=== PATIENT | male | born 1970 | race American Indian/Alaskan Native ===

== ENCOUNTER 2017-11-27 20:26 | Emergency (ER) | payer MEDICAID ==
[2017-11-27 20:31] VITALS: BMI 23.5
[2017-11-27 20:34] VITALS: BP 120/90; PULSE 71; RESP 16; TEMP 98.6
[2017-11-27] MEDS ORDERED: Naloxone HCl 2mg/2ml syr NAS PRN (20:38)
--- NOTE | 2017-11-27 20:38 | ED PDOC ---
Arrival/HPI - General Chief Complaint: Substance Abuse Time Seen by Provider: 11/27/17 20:32 Historian: Patient, EMS - History of Present Illness Narrative History of Present Illness (Text): 11/27/17 20:35 47 year old male presents to the Emergency department due to Heroin overdose. Patient was given 2mg of Narcan by the paramedics in the field. While in the Emergency department, patient presents with hypnic breathing. Patient denies any SI/HI, co-ingestion, fever, chills, chest pain, nausea, vomiting, diarrhea, urinary symptoms, back pain, neck pain, headache, dizziness, trauma/injury, suicidal/homicidal ideation or any other complaints. Time/Duration: Prior to Arrival Symptom Onset: Sudden Symptom Course: Unchanged Context: Home Past Medical History - Provider Review Nursing Documentation Reviewed: Yes - Psychiatric Hx Substance Use: Yes Family/Social History - Physician Review Nursing Documentation Reviewed: Yes Family/Social History: Unknown Family HX Smoking Status: Heavy Smoker > 10 Cigarettes Daily Hx Alcohol Use: Yes Frequency of alcohol use: Socially Hx Substance Use: Yes Substance used: Heroin Allergies/Home Meds Allergies/Adverse Reactions: Allergies No Known Allergies Allergy (Verified 11/27/17 20:30) Home Medications: Home Meds Medication Instructions Recorded Confirmed Unobtainable 11/27/17 11/27/17 Review of Systems - Physician Review All systems were reviewed & negative as marked: Yes - Review of Systems Constitutional: absent: Fevers, Night Sweats Cardiovascular: absent: Chest Pain Gastrointestinal: absent: Diarrhea, Nausea, Vomiting Genitourinary Male: absent: Dysuria Musculoskeletal: absent: Back Pain, Neck Pain Neurological: absent: Headache, Dizziness Physical Exam Vital Signs Reviewed: Yes Vital Signs Temp Pulse Resp BP Pulse Ox 11/27/17 20:32 98.6 F 71 16 120/90 100 Temperature: Afebrile Blood Pressure: Normal Pulse: Regular Respiratory Rate: Normal Appearance: Positive for: Non-Toxic, Comfortable, Other (thin habitus) Pain Distress: None Mental Status: Positive for: Alert and Oriented X 3 Finger Stick Blood Glucose: 102 - Systems Exam Head: Present: Atraumatic, Normocephalic Pupils: Present: PERRL Extroacular Muscles: Present: EOMI Conjunctiva: Present: Normal Mouth: Present: Moist Mucous Membranes Neck: Present: Normal Range of Motion Respiratory/Chest: Present: Clear to Auscultation, Good Air Exchange. No: Respiratory Distress, Accessory Muscle Use Cardiovascular: Present: Regular Rate and Rhythm, Normal S1, S2. No: Murmurs Abdomen: No: Tenderness, Distention, Peritoneal Signs Back: Present: Normal Inspection Upper Extremity: Present: Normal Inspection, Other (No signs of injection drug use). No: Cyanosis, Edema Lower Extremity: Present: Normal Inspection. No: Edema Neurological: Present: GCS=15, CN II-XII Intact, Speech Normal Skin: Present: Warm, Dry, Normal Color. No: Rashes Psychiatric: Present: Alert, Oriented x 3, Normal Insight, Normal Concentration Medical Decision Making ED Course and Treatment: 11/27/17 20:41 Impression: 47 year old male presents to the Emergency department due to heroin overdose. Differential Diagnosis included but are not limited to: drug overdose Plan: -- Narcan -- Will observe on monitor for 1.5 hours -- Reassess and disposition Progress Notes: 11/27/17 20:46 Patient is alert and oriented x4. patient is adamant about leaving and will be discharged against medical advice. 11/27/17 20:47 Leaving Against Medical Advice (AMA): The patient is choosing to leave against medical advice. I have personally explained to the patient that choosing to do so may result in permanent bodily harm or . I have discussed at great length that without further evaluation and monitoring there may be unforeseen circumstances and/or deterioration causing permanent bodily harm or as a result of their choice. The patient is alert, oriented, and shows the mental capacity to make clear decisions regarding the patients health care at this time. The patient continues to wish to leave against medical advice. In light of the patients decision to leave against medical advice, follow-up has been arranged and the patient is aware of the importance to following up as instructed. The patient has been advised that they should return to the emergency room immediately if they change their mind at any time, or if their condition begins to change or worsen in any way. - Lab Interpretations Lab Results: Lab Results 11/27/17 20:29: POC Glucose (mg/dL) 102 - Medication Orders Current Medication Orders: Naloxone HCl (Narcan 2mg/2ml) 2 mg EJ ONCE PRN PRN Reason: Opiate reversal - Scribe Statement The provider has reviewed the documentation as recorded by the Scribe Elias Estevez All medical record entries made by the Wilmeribirina were at my direction and personally dictated by me. I have reviewed the chart and agree that the record accurately reflects my personal performance of the history, physical exam, medical decision making, and the department course for this patient. I have also personally directed, reviewed, and agree with the discharge instructions and disposition. Disposition/Present on Arrival - Present on Arrival History of DVT/PE: No History of Uncontrolled Diabetes: No Urinary Catheter: No History of Decub. Ulcer: No History Surgical Site Infection Following: None - Disposition Diagnosis: Opioid overdose Disposition: AGAINST MEDICAL ADVICE Patient Problems: Current Active Problems Problem Status Onset Opioid overdose Acute Condition: IMPROVED Discharge Instructions (ExitCare): Drug Abuse and Drug Addiction (DC) Forms: [facility] (Ukrainian)
[2017-11-27 21:28] VITALS: O2SAT 99
== END 2017-11-27 21:27 | disposition left against medical advice (07) ==
LOC: ED 20:26
DX: T40.2X1A Poisoning by other opioids, accidental (unintentional), initial encounter (principal); Y92.009 Unspecified place in unspecified non-institutional (private) residence as the place of occurrence of the external cause; F17.210 Nicotine dependence, cigarettes, uncomplicated